=== PATIENT | male | born 1990 | race Caucasian/White ===

== ENCOUNTER 2021-01-12 16:23 | Emergency (ER) | payer MEDICAID, OTHER ==
[~2021-01-12] VITALS: Ht 187.9 cm; Wt 102.1 kg
--- NOTE | 2021-01-12 16:27 | ED Upper Extremity ---
General Chief Complaint: Laceration Stated Complaint: LACERATION Source: patient, EMS Exam Limitations: no limitations History of Present Illness Date Seen by Provider: Jan 12, 2021 Time Seen by Provider: 16:15 Initial Comments 30-year-old male with no significant past medical history coming in after he was preventing a glass door from shutting on his daughter when it shattered and lacerated his left forearm. He then called EMS and was brought here. Police ar rived on scene first and briefly placed a tourniquet that was not tightened to effectiveness. EMS removed it and just applied pressure. He is having constant severe sharp pain in the area of his left forearm where it was cut. Tetanus last receives greater than 10 years ago but he did get the full series going up. Does not take any medications including any blood thinners. Is right-handed at baseline. Is having some difficulty closing his hand he states with some mild tingling. Allergies and Home Medications Allergies Coded Allergies: No Known Drug Allergies (Unverified , 01/12/21) Patient Home Medication List Home Medication List Reviewed: Yes Review of Systems Constitutional: No chills EENTM: No blurred vision Respiratory: No cough Cardiovascular: No chest pain Gastrointestinal: No abdominal pain Musculoskeletal: No joint pain Skin: No rash Psychiatric/Neurological: No Symptoms Reported All Other Systems Reviewed Negative Unless Noted: Yes Past Yzhxzqo-Bkqadd-Muhfoc Hx Patient Social History Tobacco Use?: No Physical Exam Vital Signs Vital Signs - First Documented 01/12/21 16:27 Temp 36.7 Pulse 86 Resp 18 B/P (MAP) 135/93 (107) Pulse Ox 98 O2 Delivery Room Air Capillary Refill : Height, Weight, BMI Height: '" Weight: lbs. oz. kg; BMI Method: General Appearance: WD/WN, no apparent distress HEENT: PERRL/EOMI, normal ENT inspection, pharynx normal Neck: non-tender, full range of motion, supple, normal inspection Cardiovascular: regular rate, rhythm, no edema, no murmur Respiratory: chest non-tender, lungs clear, normal breath sounds, no respiratory distress, no accessory muscle use Gastrointestinal: normal bowel sounds, non tender, soft; No guarding Shoulder: normal inspection Elbow/Forearm: Left (Left forearm with a 5 cm laceration to the dorsal aspect along the radial side and another 5 cm laceration to the volar aspect ulnar side with adipose tissue and muscle exposed, no fascia seen, no bone seen, full visualization of the wound without any foreign bodies specifically no glass) Neurologic/Psychiatric: no motor/sensory deficits, alert, normal mood/affect, other (Patient able to make okay sign, spread fingers, cross fingers, and has normal motor exam/sensation in the ulnar, median, radial distribution, 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 Afterwards for simple interrupted sutures were added for increased wound integrity. The volar ulnar sided wound needed 9 simple interrupted sutures. Afterwards there was some continued venous bleeding with hematoma formation. One of the sutures was removed and the hematoma was evacuated. He was monitored for another 30 minutes with no continued bleeding at that time. The wound was then dressed with a minimal pressure dressing. Tolerated the procedure well. Does have some tingling on the ulnar side of his hand but normal sensation and motor exam otherwise. Progress/Results/Core Measures Results/Orders My Orders Orders - CHARLI PIERCE MD Forearm 2 View Left (01/12/21 16:25) Lidocaine/Epi 2% 1:100,000 (Xylocaine/Ep (01/12/21 16:30) Dipht,Pertuss(Acell),Tet Adult (Boostrix (01/12/21 16:30) Oxycodone Immediate Rel Tablet (Oxyir Ta (01/12/21 16:30) Medications Given in ED Current Medications Medications Dose Ordered Sig/Edmund Route Start Time Stop Time Status Last Admin Dose Admin Diphtheria/ Tetanus/Acell Pertussis 0.5 ml ONCE ONCE IM 01/12/21 16:30 01/12/21 16:31 DC 01/12/21 16:37 0.5 ML Lidocaine/ Epinephrine 20 ml ONCE ONCE INJ 01/12/21 16:30 01/12/21 16:31 DC 01/12/21 16:35 20 ML Oxycodone HCl 5 mg ONCE ONCE PO 01/12/21 16:30 01/12/21 16:31 DC 01/12/21 16:35 5 MG Vital Signs/I&O 01/12/21 16:27 Temp 36.7 Pulse 86 Resp 18 B/P (MAP) 135/93 (107) Pulse Ox 98 O2 Delivery Room Air Progress Progress Note : Progress Note 30-year-old male with above history coming in due to 2 lacerations to his left forearm after pushing it through a glass door on accident. ABCs were intact and vitals were stable on presentation. X-ray ordered and interpreted by me showing no fracture and no obvious foreign body including no glass seen. The ulnar- sided wound had more venous bleeding and after closure actually did require hematoma evacuation and repeat closure. He was then monitored with no repeat bleeding. Tetanus was updated. He was given oral oxycodone for pain. Given the wound depth and that it was dirty glass, he will be sent home with antibiotics. I will have him follow-up in 1 week for suture removal and wound check. I instructed him if he has any new numbness or weakness he should go to the ER as well as follow-up with a hand surgeon. I believe he is stable for discharge. He was sent home with strict return precautions. Diagnostic Imaging Diagonstic Imaging: Xray Plain Films/CT/US/NM/MRI: forearm Comments X-ray left forearm ordered and interpreted by me showing no obvious fracture and no obvious foreign body Departure Impression Primary Impression: Laceration of forearm, left Qualified Codes: S51.812A - Laceration without foreign body of left forearm, initial encounter Disposition: HOME, SELF-CARE Condition: Stable Departure-Patient Inst. Decision time for Depature: 18:00 Referrals: WOJCIECH VANEGAS DO Patient Instructions: Laceration Repair With Stitches ED Add. Discharge Instructions: You were seen in the emergency department after cutting your left forearm open. We closed this with stitches which will need to come out in the next 7 to 10 days. If you come to the emergency department, we can then do a wound check at that time and take the stitches out. If you have any spreading redness, drainage like infection, new numbness, weakness, then please come back to the emergency department. You do have some numbness and weakness which is likely related to cutting the muscle. If you have severe numbness tomorrow when you wake up I do want you to see a hand surgeon, Dr. Vanegas in [place], [place]. You could also call another if you have a preference. All discharge instructions reviewed with patient and/or family. Voiced understanding. Scripts Ibuprofen (Ibuprofen) 600 Mg Tablet 600 MG PO Q6H PRN for PAIN-MILD for 5 Days, #20 TAB Prov: CHARLI PIERCE MD 01/12/21 Cephalexin (Cephalexin) 500 Mg Tablet 500 MG PO QID for 7 Days, #28 TAB Prov: CHARLI PIERCE MD 01/12/21 CHARLI PIERCE MD Jan 12, 2021 16:26
[2021-01-12] MEDS ORDERED: TETANUS,DIPTH,PERTUSS P/F (BOOSTRIX) 0.5 ML VIAL IM ONE (16:30)
[2021-01-12] MEDS ORDERED: LIDOCAINE/EPI 2% 1:100,00 (XYLOCAINE) 20 ML VIAL INJ ONE (16:30)
[2021-01-12] MEDS ORDERED: CEPH500T PO (17:57)
[2021-01-12] MEDS ORDERED: IBUP-1773 PO (17:57)
[2021-01-12 18:20] VITALS: BP 125/71
--- NOTE | 2021-01-12 18:59 | Diagnostic Imaging Report ---
INDICATION: Laceration of left forearm. COMPARISON: None available. TECHNIQUE: 2 views of the left forearm. FINDINGS: No radiopaque foreign body or soft tissue gas. No acute fracture. Elbow and wrist are normal in alignment. IMPRESSION: 1. No radiopaque foreign body. Dictated by: Dictated on workstation # [id number]
== END 2021-01-12 18:20 | disposition home or self-care (01) ==
LOC: ER FS 16:28
DX: S51.812A Laceration without foreign body of left forearm, initial encounter (principal); Z23 Encounter for immunization; W25.XXXA Contact with sharp glass, initial encounter
CPT/HCPCS: 12002; 90715

== ENCOUNTER 2021-01-20 08:49 | Emergency (ER) | payer MEDICAID ==
[~2021-01-20] VITALS: Ht 187.9 cm; Wt 102.1 kg
[~2021-01-20 08:49] MED LIST: CEPH500T PO; IBUP-1773 PO
--- NOTE | 2021-01-20 09:07 | ED Suture Removal/Wound Check ---
Suture/Wound Re-check Suture Removal/Wound Recheck : Suture Removal/Wound Recheck: Dry/sterile dressing-appl, Sutures removed by RN Progress sutures removed from anterior and posterior aspect of forearm without difficulty. No erythema, fluctuance, drainage, increased warmth to indicate infection. Since pt reports intermittent tingling in ring and pinky finger recommend he follow up with clinic and see pcp provider or orthopedics provider for follow up and help with PT and monitoring how he is healing. General Appearance: WD/WN, no apparent distress Neuro/Tendon: normal motor functions, normal tendon functions, sensory deficit (reports intermittent tingling in pinky and ring finger) Skin Exam: warm/dry, ecchymosis (healling bruising to forearm) Physical Exam Vital Signs Capillary Refill : General Appearance: WD/WN, no apparent distress Cardiovascular: normal peripheral pulses Departure Impression Primary Impression: Encounter for removal of sutures Additional Impression: Numbness and tingling in left hand Disposition: 01 HOME, SELF-CARE Condition: Stable Departure-Patient Inst. Decision time for Depature: 09:02 Referrals: NO,LOCAL PHYSICIAN (PCP) Primary Care Physician KEKE ADAMS MD [facility] Patient Instructions: Paresthesia (DC), Stitches Removal Add. Discharge Instructions: Start to gently stretch and move your elbow and hand to increase the range of motion. Call the clinic to arrange a follow up to be seen with a primary provider by calling [facility] at [phone] or you could see Orthopedics Dr. Gricelda has a nurse practitioner, Kvng Watkins, that works in the [facility] clinic here in [place]. You may call [phone] to set up an appointment with him. See a provider for follow up so that you can have them help you with physical therapy and checking to see that your strength, movement and sensation is coming back in your arm and hand. JESUS CLARK MD Jan 20, 2021 09:07
[2021-01-20 09:11] VITALS: BP 151/101
== END 2021-01-20 09:11 | disposition home or self-care (01) ==
LOC: EDUNIT# 08:49 → ER FS 08:50
DX: Z48.02 Encounter for removal of sutures (principal)

== ENCOUNTER 2021-01-26 12:06 | Emergency (ER) | payer MEDICAID ==
[~2021-01-26] VITALS: Ht 185.4 cm; Wt 97.7 kg
[2021-01-26] MEDS ORDERED: ACHD5005 PO (12:31)
--- NOTE | 2021-01-26 12:34 | ED Upper Extremity ---
General Chief Complaint: Upper Extremity Stated Complaint: LT ARM PAIN Source: patient, old records History of Present Illness Date Seen by Provider: Jan 26, 2021 Time Seen by Provider: 12:08 Initial Comments 30-year-old male presenting with continued pain in his left forearm into his wrist and hand. He had a complex laceration on January 12 that was closed in the ED. He had stitches removed on the and did not have any occasions of infection at that time. He was having still pain as well as intermittent numbness and tingling in his hands and fingers. He had increased pain with movement of the wrist and fingers. Advised to see the clinic and primary care or orthopedics for repeat evaluation as he may need further care for the laceration of his forearm or at least physical therapy and conditioning of the arm. He states that when he followed up he was prescribed diclofenac which was helping with pain inflammation as well as swelling. However he continues to have significant amount of pain at times. He did get referred to Dr. Madison and nurse practitioner Kvng Watkins with orthopedics and they reviewed x-rays and referred the patient onto orthopedics at . However, the patient does not have an appointment until January 31. When he went to the clinic today to try to be seen and get a note for work he was advised his primary provider was out of the office. Since he was still having significant pain he came to the ED. He denies any new injury. He has had no fever or chills. There is no redness or streaking up the forearm. He has no purulent drainage from the wounds. His pain is worse on the flexor surface of his forearm around the laceration and when he tries to move his wrist. Allergies and Home Medications Allergies Coded Allergies: No Known Drug Allergies (Unverified , 01/12/21) Patient Home Medication List Home Medication List Reviewed: Yes Hydrocodone/Acetaminophen (Hydrocodone-Acetamin 5-325 mg) 1 Each Tablet, 1 TAB PO Q6H PRN for PAIN-SEVERE (8-10) Prescribed by: JESUS CLARK on 01/26/21 1232 Discontinued Medications Cephalexin (Cephalexin) 500 Mg Tablet, 500 MG PO QID Prescribed by: CHARLI PIERCE on 01/12/21 1117 Ibuprofen (Ibuprofen) 600 Mg Tablet, 600 MG PO Q6H PRN for PAIN-MILD Prescribed by: CHARLI PIERCE on 01/12/21 175 Review of Systems Constitutional: No chills, No fever EENTM: no symptoms reported Respiratory: no symptoms reported Cardiovascular: no symptoms reported Gastrointestinal: no symptoms reported Genitourinary: no symptoms reported Musculoskeletal: see HPI Skin: see HPI Psychiatric/Neurological: See HPI Past Hvrvhjx-Bqgwqs-Icvpwb Hx Past Medical History Surgery/Hospitalization HX: Left forearm laceration Physical Exam Vital Signs Vital Signs - First Documented 01/26/21 12:09 Temp 36.7 Pulse 88 Resp 16 B/P (MAP) 139/78 (98) Pulse Ox 98 O2 Delivery Room Air Capillary Refill : Height, Weight, BMI Height: '" Weight: lbs. oz. kg; 28.00 BMI Method:Actual General Appearance: WD/WN, mild distress HEENT: PERRL/EOMI Cardiovascular: normal peripheral pulses, regular rate, rhythm Shoulder: normal inspection, non-tender, no evidence of injury Elbow/Forearm: Left, limited ROM (due to pain and sensation that his forearm will tear open) Wrist: Yes limited ROM (decreased ROM with pain when he tries to move Left wrist) Hand: Left, limited ROM (due to pain decreased ROM of fingers of left hand, especially pinky and ring fingers), stiffness, swelling (mild) Neurologic/Psychiatric: alert, oriented x 3 Skin: normal color, warm/dry; No ecchymosis Procedures/Interventions Suture Size: 4-0 Progress/Results/Core Measures Results/Orders Vital Signs/I&O 01/26/21 01/26/21 12:09 13:00 Temp 36.7 36.7 Pulse 88 88 Resp 16 16 B/P (MAP) 139/78 (98) 139/78 Pulse Ox 98 98 O2 Delivery Room Air Room Air Progress Progress Note : Progress Note No sign of infection on exam of his wounds as he had no erythema, fluctuance, purulent drainage, increased warmth. Add on a few Hydrocodone for severe pain in addition to diclofenac and keep appt with [facility] on Jan 31. Departure Impression Primary Impression: Left forearm pain Additional Impressions: Decreased ROM of wrist Qualified Codes: M25.632 - Stiffness of left wrist, not elsewhere classified Numbness and tingling in left hand Disposition: 01 HOME, SELF-CARE Condition: Stable Departure-Patient Inst. Decision time for Depature: 12:30 Referrals: SEKOU ORDONEZ MD (PCP) Primary Care Physician [facility] (Family) Primary Care Physician Patient Instructions: Opioids for Short-Term Treatment of Pain ED, Paresthesia (DC), Muscle and Bone Pain (DC) Add. Discharge Instructions: Continue the diclofenac for pain and inflammation. You may take this up to 3 times a day. Use the hydrocodone up to 4 times a day as needed for severe pain. Follow-up with [facility] on the as scheduled. Continue to elevate your arm and alternate ice and heat to your arm to help with pain and inflammation. All discharge instructions reviewed with patient and/or family. Voiced understanding. Scripts Hydrocodone/Acetaminophen (Hydrocodone-Acetamin 5-325 mg) 1 Each Tablet 1 TAB PO Q6H PRN for PAIN-SEVERE (8-10) for 6 Days, #24 TAB 0 Refills Prov: JESUS CLARK MD 01/26/21 Work/School Note: Work Release Form Date Seen in the Emergency Department: Jan 26, 2021 Return to Work: Feb 02, 2021 Restrictions: Need Release from Doctor Other Restrictions Listed Below: Off work until released by Orthopedics from injury Left forearm/hand JESUS CLARK MD Jan 26, 2021 12:34
[2021-01-26 13:00] VITALS: BP 139/78
== END 2021-01-26 12:38 | disposition home or self-care (01) ==
LOC: EDUNIT# 12:06 → ER FS 12:07
DX: M79.632 Pain in left forearm (principal); M25.632 Stiffness of left wrist, not elsewhere classified; R20.0 Anesthesia of skin; R20.2 Paresthesia of skin; Z88.6 Allergy status to analgesic agent

== ENCOUNTER 2021-02-20 13:26 | Emergency (ER) | payer MEDICAID ==
[~2021-02-20] VITALS: Ht 185.5 cm; Wt 90.7 kg
[~2021-02-20 13:26] MED LIST changes: +ACHD5005 PO
--- OUTSIDE RECORDS SUMMARY | 2021-02-20 13:32 | XMS REPORT | Encounter Summary ---
Author Author [facility] Organization [facility] Address Unknown Phone Unavailable Care Team Providers Care [place] Name Role Phone Pricilla Mcdaniel MD PCP Encounter Details Care Team Description Date Type Department 02/01/2021 Travel Social History Date Tobacco Use Types Packs/Day Years Used Quit: 2007 Former Smoker Cigarettes 2 8 Smokeless Tobacco: Never Used Sex Assigned at Date Recorded Not on file Date Recorded COVID-19 Exposure Response 02/01/2021 2:19 PM CDT In the last month, have you been in contact with No / Unsure someone who was confirmed or suspected to have Coronavirus / COVID-19? documented as of this encounter Functional Status Date of Assessment Functional Status Response 01/31/2021 Does the patient have a hearing impairment: No 01/31/2021 Does the patient have a visual impairment: No 01/31/2021 Does the patient have impaired ambulation: No - Righ t handed 01/31/2021 Does the patient have an activity of daily living No (ADL) impairment: 01/31/2021 Does the patient have an instrumental activity of No daily living (IADL) impairment: Date of Assessment Cognitive Status Response 01/31/2021 Does the patient have a cognitive impairment: No documented as of this encounter Plan of Treatment Not on filedocumented as of this encounter Visit Diagnoses Not on filedocumented in this encounter Additional Health Concerns Assessment Noted Time A fall risk assessment has been completed for the pat ient 02/01/2021 7:45 PM CDT PHQ-2 Depression Total Score: 0 01/31/2021 2:28 PM CDT documented as of this encounter
--- OUTSIDE RECORDS SUMMARY | 2021-02-20 13:32 | XMS REPORT | Encounter Summary ---
Author Author [facility] Organization [facility] Address Unknown Phone Unavailable Care Team Providers Care Litigation Manager Name Role Phone Priclila Mcdaniel MD PCP Reason for Visit * Auth/Cert Referred By Contact Referred To Contact Status Reason Specialty Diagnoses / Procedures Diagnoses Laceration of left forearm, initial encounter Laceration of left forearm, initial encounter [U99.899P] P rocedures [place] SUTR PRPH NRV ARM/LEG XCP SCIATIC W/O TRPOS LEFT FOREARM WOUND EXPLORATION WITH REPAIR OF STRUCTURES INDICATED Encounter Details Care Team Description Date Type Department Tereza Knight MD [address] [place], [place] [id number] Jerry Soto MD [address] [place], [place] [id number] 02/01/2021 Anesthesia Operating Room: [facility] [address] [facility] [address] [place] [phone] Anesthesia Record Responsible Anesthesiologist Anesthesia Start Time Anesthesi a Stop Time Procedure Name Tereza Knight MD 02/01/21 18402/01/21 194 LEFT FOREARM WOUND EXPLORATION, ulnar neurolysis (Left Lower Arm) Date Time Event Comment 1519 183 AN Equip Check 1839 In Room 1840 Out of Pre Procedure 1840 Anes Start 184 An Start Data 184 An Induction The patient was ree valuated immediately before moderate or deep sedation use and before anesthesia induction. 184 An Intubation 184 Anesthesia Ready 1853 Antibiotic Given 1899 Proc Start 1899 An Tourn Inflated 1915 An Tourn Deflated 1936 An Extubation 1938 an stop data 1940 Handoff to RN I completed my SBAR handoff to the receiving nurse. 1940 An Stop Meds Name Total midazolam (VERSED) 1 mg/mL injection 2 mg fentaNYL PF (SUBLIMAZE) injection 100 mcg lidocaine (2%) 200 mg/10mL Injection 100 mg syringe propofol (DIPRIVAN) 200 mg/ 20 mL 250 mg injection (VIAL) ondansetron (ZOFRAN) injection 4 mg dexamethasone (DECADRON) 4 mg/mL 4 mg injection artificial tears (dextran 1 drop 70/hypromellose) ophthalmic drops HYDROmorphone (DILUADID) 2 mg dexmedeTOMIDine (PRECEDEX) 20mcg/5mL inj 8 mcg acetaminophen (OFIRMEV) 1000mg injection 1,000 mg lactated ringers infusion 0 mL * Name O2 N2O Inspired N2O Sevoflurane Inspired Sevoflurane * No blood administrations on file. Removal Type Details Placement 02/01/21 2100 by Fara Jones BSN Peripheral 02/01/21; 1500; RN; R; Hand; 20 G; No; 02/01/21 1500 by MARIA ELENA Hayes 1; 02/01/21; 2099 GARY Dean 02/01/212135 by Rafal, Ap Processor Wounds 02/01/21; 1943; Surgical incision; 1943 by Thomas, 02/01/21; 2135 GARY Chaudhry documented in this encounter Social History Date Tobacco Use Types Packs/Day [...] the patient have impaired ambulation: No - Catherineh t handed 01/31/2021 Does the patient have an activity of daily living No (ADL) impairment: 01/31/2021 Does the patient have an instrumental activity of No daily living (IADL) impairment: Date of Assessment Cognitive Status Response 01/31/2021 Does the patient have a cognitive impairment: No documented as of this encounter OR Notes * Anesthesia Postprocedure Evaluation - Leonard Jean-Baptiste DO - 02/01/2021 9:12 PM CDT Post-Anesthesia Evaluation Name: Jarrett Ledezma : 1990 Age: 30 y.o. Sex: male Procedure Information Anesthesia Start Date/Time: 02/01/211840 Procedure: LEFT FOREARM WOUND EXPLORATION, ulnar neurolysis (Left Lower Arm) - PREOP BLOCK Location: MAIN OR 37 / Main OR/Periop Surgeons: Srikanth Holm MD Post-Anesthesia Vitals BP: 128/97 (02/01 2100) Pulse: 77 (02/01 2100) Respirations: 19 PER MINUTE (02/01 2100) SpO2: 99 % (02/01 2100) SpO2 Pulse: 75 (02/01 2100) Vitals Value Taken Time BP 128/97 02/01/212099 Temp 36.5 C (97.7 F) 02/01/21 194 Pulse 77 02/01/212099 Respirations 19 PER MINUTE 02/01/212099 SpO2 99 % 02/01/212099 Post Anesthesia Evaluation Note Evaluation location: Pre/Post Patient participation: recovered; patient participated in evaluation Level of consciousness: alert Pain score: 6 (Tolerable) Pain management: adequate Hydration: normovolemia Temperature: 36.0C - 38.4C Airway patency: adequate Perioperative Events Post-op nausea and vomiting: nausea; vomiting; resolved Postoperative Status Cardiovascular status: hemodynamically stable Respiratory status: spontaneous ventilation Follow-up needed: none Additional comments: The patient was evaluated at the bedside and meets criteria for discharge from PACU at this time. The patient is agreeable to discharge and agrees to be under the care of a responsible adult for 24 hours following admin istration of anesthesia. Strict return precautions were discussed with the patie nt. A physical copy of discharge paperwork was provided, including pertinent con tact information for the patient's surgical provider and the [facility]. Leonard Jean-Baptiste DO Anesthesiology PGY-3 Perioperative Events Perioperative Event: No Emergency Case Activation: No Associated attestation - Tereza Knight MD - 02/01/2021 11:05 PM CDT ATTESTATION Post-Anesthesia Evaluation Attestation: I reviewed and agree the indicated post- anethesia care was provided. Staff name: Tereza Knight MD Date: 02/01/2021 * Anesthesia Preprocedure Evaluation - Surjit Hall MD - 02/01/2021 2:57 PM CDT Anesthesia Pre-Procedure Evaluation Name: Jarrett Ledezma : 1990 Age: 30 y.o. Sex: male Procedure Info: Procedure Information Date/Time: 02/01/21 130 Procedure: LEFT FOREARM WOUND EXPLORATION WITH REPAIR OF STRUCTURES INDICATE D (Left ) - PREOP BLOCK Location: MAIN OR 37 / Main OR/Periop Surgeons: Srikanth Holm MD Physical Assessment Vital Signs (last filed in past 24 hours): BP: 141/94 (02/02 1452) Temp: 36.6 C (97.8 F) (02/01 1442) Pulse: 80 (02/02 1452) Respirations: 8 PER MINUTE (02/02 1452) SpO2: 99 % (02/02 1452) Height: 185.4 cm (73") (02/01 1442) Weight: 98 kg (216 lb 0.8 oz) (02/01 1442) Patient History Allergies Allergen Reactions Aspirin UNKNOWN Current Medications Medication Directions DICLOFENAC SODIUM PO Take 75 mg by mouth three times daily. HYDROcodone/acetaminophen (NORCO) 5/325 mg tablet Take 1 tablet by mouth every 6 hours as needed for Pain Review of Systems/Medical History Patient summary reviewed Pertinent labs reviewed PONV Screening: Non-smoker No history of anesthetic complications No family history of anesthetic complications Pulmonary Current smoker marijuana No indications/hx of asthma no COPD Cardiovascular Exercise tolerance: >4 METS No hypertension, No palpitations No angina No dyspnea on exertion GI/Hepatic/Renal No GERD, No hx of liver disease No renal disease Neuro/Psych No seizures No CVA Substance use (occasional medical THC use) and marijuana 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 Arm went through glass door. ) Endocrine/Other No diabetes No hypothyroidism Physical Exam Airway Findings Mallampati: I TM distance: >3 FB Neck ROM: full Mouth opening: good Airway patency: adequate Cardiovascular Findings: Rhythm: regular Rate: normal Pulmonary Findings: Breath sounds clear to auscultation. Neurological Findings: Alert and oriented x 3 Constitutional findings: No acute distress Well-developed Well-nourished Diagnostic Tests Hematology: No results found for: HGB, HCT, PLTCT, WBC, NEUT, ANC, LYMPH, ALC, A BSLYMPHCT, ANNA, AMC, EOSA, ABC, BASOPHILS, MCV, MCH, MCHC, MPV, RDW General Chemistry: No results found for: NA, K, CL, CO2, GAP, BUN, CR, GLU, CA, KETONES, ALBUMIN, LACTIC, OBSCA, MG, TOTBILI, TOTBILCB, PO4 Coagulation: No results found for: PT, PTT, INR Anesthesia Plan ASA score: 1 Plan: regional Induction method: intravenous NPO status: acceptable Informed Consent Anesthetic plan and risks discussed with patient. Use of blood products discussed with patient Blood Consent: consented Plan discussed with: anesthesiologist, resident and HEDDLE MACHINE OPERATOR. documented in this encounter Plan of Treatment Not on filedocumented as of this encounter Visit Diagnoses Not on filedocumented in this encounter Administered Medications Action Date Dose Rate Site Medication Order MAR Action 02/01/2021 7:32 PM CDT 1,000 mg acetaminophen (OFIRMEV) injection Given Intravenous, Administer over 15 Minutes , INTRA-PROCEDURE MED, Starting on Kinjal 02/01/21 at 1932, Until Kinjal 02/01/21 at 1952, Anesthesia Intra-op 02/01/2021 6:44 PM CDT 1 drop artificial tears single dose ophthalmic Given solution Both Eyes, INTRA-PROCEDURE MED, Startin g on Kinjal 02/01/21 at 1844, Until Kinjal 02/01/21 at 1950, Anesthesia Intra-op 02/01/2021 7:10 PM CDT 4 mg dexamethasone (DECADRON) injection Given Intravenous, INTRA-PROCEDURE MED, Starting on Kinjal 02/01/21 at 1910, Until Kinjal 02/01/21 at 1951, Anesthesia Intra-o p 02/01/2021 7:27 PM CDT 8 mcg dexmedeTOMIDine (PRECEDEX) 20 mcg/5 mL Given (4 mcg/mL) injection Intravenous, INTRA-PROCEDURE MED, Starting on Kinjal 02/01/21 at 1927, Until Kinjal 02/01/21 at 1950, Anesthesia Intra-o p 02/01/2021 6:43 PM CDT 100 mcg fentaNYL citrate PF (SUBLIMAZE) Given injection Intravenous, INTRA-PROCEDURE MED, Starting on Kinjal 02/01/21 at 1843, Until Kinjal 02/01/21 at 1950, Anesthesia Intra-o p 02/01/2021 7:32 PM CDT 1 mg HYDROmorphone injection (DILAUDID) Given Intravenous, INTRA-PROCEDURE MED, Starting on Kinjal 02/01/21 at 1901, Until Kinjal 02/01/21 at 1950, Anesthesia Intra-o p 1 mg Given 02/01/2021 7:01 PM CDT 02/01/2021 6:43 PM CDT 100 mg lidocaine (PF) injection Given Intravenous, INTRA-PROCEDURE MED, Starting on Kinjal 02/01/21 at 1843, Until Kinjal 02/01/21 at 1950, Anesthesia Intra-o p 02/01/2021 6:41 PM CDT 2 mg midazolam (VERSED) injection Given Intravenous, INTRA-PROCEDURE MED, Starting on Kinjal 02/01/21 at 1841, Until Kinjal 02/01/21 at 1950, Anesthesia Intra-o p 02/01/2021 7:34 PM CDT 4 mg ondansetron (ZOFRAN) injection Given Intravenous, INTRA-PROCEDURE MED, Starting on Kinjal 02/01/21 at 1934, Until [facility] 02/01/21 at 1951, Anesthesia Intra-o p 02/01/2021 6:43 PM CDT 250 mg propofol (DIPRIVAN) injection Given Intravenous, INTRA-PROCEDURE MED, Starting on Kinjal 02/01/21 at 1843, Until Kinjal 02/01/21 at 1951, Anesthesia Intra-o p documented in this encounter Additional Health Concerns Assessment Noted Time A fall risk assessment has been completed for the pat ient 02/01/2021 7:45 PM CDT PHQ-2 Depression Total Score: 0 01/31/2021 2:28 PM CDT documented as of this encounter
--- OUTSIDE RECORDS SUMMARY | 2021-02-20 13:32 | XMS REPORT | Encounter Summary ---
Author Author [facility] Organization [facility] Address Unknown Phone Unavailable Care Team Providers Care Cheese Processor Name Role Phone Pricilla Mcdaniel MD PCP Encounter Details Care Team Description Date Type Department Srikanth Holm MD [address] [facility] [address] [place] [address] 02/13/2021 Orders Only Orthopedics and Spo rts Medicine: [facility] [place] [place] [address] [place] [address] Social History Date Tobacco Use Types Packs/Day [...] impairment: No documented as of this encounter Ordered Prescriptions Start Date End Date Prescription Sig Dispensed Refills 02/13/2021 HYDROcodone/acetaminophen Take one 10 tablet 0 (NORCO) 5/325 mg tablet tablet to two tablets by mouth every 4 hours as needed for Pain documented in this encounter Plan of Treatment Not on filedocumented as of this encounter Visit Diagnoses Not on filedocumented in this encounter Discontinued Medications Start Date End Date Medication Sig Discontinue Reason 02/01/2021 02/13/2021 HYDROcodone/acetaminophen Take one Reorder (NORCO) 5/325 mg tablet tablet to two tablets by mouth every 4 hours as needed for Pain documented as of this encounter Additional Health Concerns Assessment Noted Time A fall risk assessment has been completed for the pat ient 02/01/2021 7:45 PM CDT PHQ-2 Depression Total Score: 0 01/31/2021 2:28 PM CDT documented as of this encounter
--- OUTSIDE RECORDS SUMMARY | 2021-02-20 13:32 | XMS REPORT | Clinical Summary ---
Author Author [facility] Organization [facility] Address Unknown Phone Unavailable Care Team Providers Care Surface Miner Name Role Phone Pricilla Mcdaniel MD PCP Source Comments Some departments are not documenting in the electronic medical record. If you d o not see the information that you expected, contact Release of Information in [facility] [employer] Information Management department at [phone] for further assistan ce in locating additional records.[facility] Allergies Comments Active Allergy Reactions Severity Noted Date Aspirin UNKNOWN Low 01/31/2021 Medications End Date Status Medication Sig Dispensed Refills Start Date Active DICLOFENAC SODIUM PO Take 75 mg by 0 mouth three times daily. Active HYDROcodone/acetaminophen Take 1 tablet 0 (NORCO) 5/325 mg tablet by mouth every 6 hours as needed for Pain Active HYDROcodone/acetaminophen Take one 10 tablet 0 (NORCO) 5/325 mg tablet tablet by 1 mouth every 6 hours as needed for Pain Active HYDROcodone/acetaminophen Take one 10 tablet 0 (NORCO) 5/325 mg tablet tablet to two 1 tablets by mouth every 4 hours as needed for Pain 02/13/2021 Discontinued (Reorder) HYDROcodone/acetaminophen Take one 10 tablet 0 (NORCO) 5/325 mg tablet tablet to two 1 tablets by mouth every 4 hours as needed for Pain Active Problems Problem Noted Date Forearm laceration 02/08/2021 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 Encounters Care Team Description Date Type Specialty Srikanth Holm MD 02/13/2021 Orders Only Orthopedic Surgery Tereza Knight MD Bachamp, Kyle, MD 02/01/2021 Anesthesia Event Chacha Lyn MD 02/01/2021 Hospital Radiology Encounter Srikanth Holm MD Laceration of left forearm, initial enco unter 02/01/2021 Hospital Encounter Srikanth Holm MD LEFT FOREARM WOUND EXPLORATION, ulnar ne urolysis 02/01/2021 Surgery 02/01/2021 Travel Gio Jean-Baptiste MD Fox, Tyler J, MD Laceration of left forearm, initial enco unter; 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, initial encounter 01/31/2021 Office Visit Sports Medicine Trever Smith PA-C Laceration of left forearm, initial enco unter (Primary Dx) 01/31/2021 Prep for Case Sports Medicine 01/31/2021 Travel Gio Jean-Baptiste MD Appointment 01/26/2021 Telephone Orthopedic Surgery from Last 3 Months Social History Date Tobacco Use Types Packs/Day Years Used Quit: 2007 Former Smoker Cigarettes 2 8 Smokeless Tobacco: Never Used Sex Assigned at Date Recorded Not on file Date Recorded COVID-19 Exposure Response 02/01/2021 2:19 PM CDT In the last month, have you been in contact with No / Unsure someone who was confirmed or suspected to have Coronavirus / COVID-19? Last Filed Vital Signs Reading Time Taken Comments Vital Sign 128/97 02/01/2021 9:00 PM CDT Blood Pressure 65 02/01/2021 9:01 PM CDT Pulse 36.7 C (98.1 F) 02/01/2021 9:00 PM CDT Temperature - - Respiratory Rate 97% 02/01/2021 9:01 PM CDT Oxygen Saturation - - Inhaled Oxygen Concentration 98 kg (216 lb 0.8 oz) 02/01/2021 2:42 PM CDT Weight 185.4 cm (6' 1") 02/01/2021 2:42 PM CDT Height 28.5 02/01/2021 2:42 PM CDT Body Mass Index Plan of Treatment Health Maintenance Due Date Last Done Comments HIV SCREENING 2004 DTAP/TDAP VACCINES (1 - 2007 Tdap) HEPATITIS C SCREENING 2007 PHYSICAL (COMPREHENSIVE) 2007 EXAM INFLUENZA VACCINE 12/10/2020 Procedures Comments Procedure Name Priority Date/Time Associated Diag nosis SUTURE MAJOR PERIPHERAL 02/01/2021 Laceration of left NERVE WITHOUT 6:40 PM CDT forearm, initial TRANSPOSITION - UPPER encounter EXTREMITY TELEMETRY STRIPS-SCAN 02/01/2021 12:00 AM CDT TELEMETRY STRIPS-SCAN 02/01/2021 12:00 AM CDT from Last 3 Months Results * TELEMETRY STRIPS-SCAN (02/01/2021 12:00 AM CDT) Narrative Performed At This result has an attachment that is n ot available. Ordered by an unspecified provider. * TELEMETRY STRIPS-SCAN (02/01/2021 12:00 AM CDT) Narrative Performed At This result has an attachment that is n ot available. Ordered by an unspecified provider. from Last 3 Months Insurance Type Payer Benefit Subscriber ID Effective Phone Address Plan / Dates Group Medicaid UHC MEDICAID [place] UHC [id number] 2020-P [facility] [place] [phone] Advance Directives Patient Wheel Cleaner Explanation Type Date Recorded Advance Directive/DPOA
--- OUTSIDE RECORDS SUMMARY | 2021-02-20 13:32 | XMS REPORT | Encounter Summary ---
Author Author [facility] Organization [facility] Address Unknown Phone Unavailable Care Team Providers Care Aviation Mechanic Name Role Phone Pricilla Mcdaniel MD PCP Reason for Visit * Auth/Cert Referred By Contact Referred To Contact Status Reason Specialty Diagnoses / Procedures Diagnoses Laceration of left forearm, initial encounter Laceration of left forearm, initial encounter [C31.542L] P rocedures [place] SUTR PRPH NRV ARM/LEG XCP SCIATIC W/O TRPOS LEFT FOREARM WOUND EXPLORATION WITH REPAIR OF STRUCTURES INDICATED Encounter Details Care Team Description Date Type Department Srikanth Holm MD [address] [facility] [address] [place] [address] LEFT FOREARM WOUND EXPLORATION, ulnar ne urolysis 02/01/2021 Surgery Operating Room: [address] [place] [address] Surgery Details Trauma Case? Date/Time Status Location OR Service Patient Class Case Class Case Type 02/01/21 Posted [facility] OR OR [facility] Elect daniele - 1:02 PM s Surgery Treating conditions that are not life or limb threatenin g Panel 1 Procedure LRB Anes Op Region Wound Class Com ments LEFT FOREARM WOUND Left Monitored Lower Arm Clean PREO P BLOCK EXPLORATION, ulnar Anesthesia neurolysis Care (MAC) Panel Surgeon Surgeon Role Service 1 Srikanth Holm MD Primary Orthopedics Social History Date Tobacco Use Types Packs/Day [...] impairment: No documented as of this encounter Medications at Time of Discharge Start Date End Date Medication Sig Dispensed Refills DICLOFENAC SODIUM PO Take 75 mg by 0 mouth three times daily. 02/01/2021 HYDROcodone/acetaminophen Take one 10 tablet 0 (NORCO) 5/325 mg tablet tablet by mouth every 6 hours as needed for Pain HYDROcodone/acetaminophen Take 1 tablet 0 (NORCO) 5/325 mg tablet by mouth every 6 hours as needed for Pain 02/01/2021 02/13/2021 HYDROcodone/acetaminophen Take one 10 tablet 0 (NORCO) 5/325 mg tablet tablet to two tablets by mouth every 4 hours as needed for Pain documented as of this encounter Ordered Prescriptions Start Date End Date Prescription Sig Dispensed Refills 02/01/2021 HYDROcodone/acetaminophen Take one 10 tablet 0 (NORCO) 5/325 mg tablet tablet by mouth every 6 hours as needed for Pain 02/01/2021 02/13/2021 HYDROcodone/acetaminophen Take one 10 tablet 0 (NORCO) 5/325 mg tablet tablet to two tablets by mouth every 4 hours as needed for Pain documented in this encounter Discharge Disposition Code Departure Means Destination Disposition Wheelchair Home or Self Care documented in this encounter Progress Notes * Isatu Mckinney RN - 02/01/2021 5:49 PM CDT Annie is on the Mezzanine with baby. documented in this encounter H&P Notes * Trever Smith PA-C - 02/01/2021 6:30 PM CDT [facility] History & Physical Note Admission Date: 02/01/2021 Chief Complaint: Left forearm laceration Assessment/Plan Plan to proceed to OR today for left forearm wound exploration and repair of st ructures as indicated History of Present Illness: Jarrett Arnett is a 30 y.o. male, who presents fo r operative management of his left forearm wound. No past medical history on file. No past surgical history on file. Social History Socioeconomic History Marital status: Single Spouse name: Not on file Number of children: Not on file Years of education: Not on file Highest education level: Not on file Occupational History Not on file Tobacco Use Smoking status: Former Smoker Packs/day: 2.00 Years: 8.00 Pack years: 16.00 Types: Cigarettes Quit date: 2007 Years since quittin.7 Smokeless tobacco: Never Used Vaping Use Vaping Use: Never used Substance and Sexual Activity Alcohol use: Not on file Drug use: Not on file Sexual activity: Not on file Other Topics Concern Not on file Social History Narrative Not on file No family history on file. Allergies: Allergies Allergen Reactions Aspirin UNKNOWN No current outpatient medications on file as of 02/01/2021. Review of Systems: Musculoskeletal:positive for hand pain Cardio: denies chest pain Respiratory: denies shortness of breath Blood pressure (!) 141/94, pulse 80, temperature 36.6 C (97.8 F), height 185 .4 cm (73"), weight 98 kg (216 lb 0.8 oz), SpO2 99 %. Physical Exam: General: AAOx3, NAD Skin: laceration at ulnar aspect of forearm with sutures in place. No signs of i nfection Musculoskeletal: holding wrist and fingers in flexed position Neurologic: decreased sensation to small and ring fingers Lab/Radiology/Other Diagnostic Tests: Radiographs: CBC w/Diff No results found for: WBC, HGB, HCT, PLTCT Basic Metabolic Profile No results found for: NA, K, CL, CO2, GAP, BUN, CR, GLU Coagulation Studies No results found for: PT, PTT, INR Trever Smith PA-C documented in this encounter Miscellaneous Notes * Operative Report (DICTATED ONLY) - Srikanth Holm MD - 02/01/2021 9:25 PM CDT THE [address] [address] PATIENT NAME: JARRETT ARNETT MR#/PT#: [id number] Page 2 OPERATIVE REPORT DATE OF OPERATION: 02/01/2021 SURGEON: Srikanth Holm MD DOUBLE END PRODUCTION GRINDER(S): Trever Smith PA-C. PREOPERATIVE DIAGNOSIS: Left forearm laceration with likely ulnar nerve injury. POSTOPERATIVE DIAGNOSIS: Left forearm laceration with likely ulnar nerve injury. OPERATIVE PROCEDURE: Left forearm penetrating wound exploration with ulnar nerve exploration. ANESTHESIA: General. DESCRIPTION AND FINDINGS OF OPERATIVE PROCEDURE: After informed consent had been obtained, the patient was transported to the OR. He was transferred supine on operating table. The left arm was positioned on the hand table, sterilely prepped and draped in a standard fashion. An operativ e pause was conducted to confirm correct patient, side, site, and procedure. Th e patient received IV antibiotics for antimicrobial prophylaxis. I confirmed my initials were present on the operative extremity. There was a transverse lacer ation at the mid point of the ulnar volar forearm. A V-shaped extension proxima lly and distally was marked. The arm was exsanguinated with an Esmarch bandage and the tourniquet inflated to 250 mmHg. We opened the skin and dissected caref ully through the subcutaneous tissue under 4.0 loupe magnification. Significant scarring was present. The antebrachial fascia was incised. We identified the ulnar neurovascular bundle, both proximally and distally. We dissected into the zone of injury. Again, significant scarring present. The ulnar artery had bee n lacerated and was clotted both proximally and distally. The ulnar nerve was c arefully explored under magnification utilizing standard microsurgical dissectio n technique. There appeared to be a neuroma in continuity with dense scar tissu e present at the zone of injury. The central motor fascicle of the ulnar nerve appeared to be intact and relatively uninjured. The dorsal most sensory fascicl e also appeared to be normal. The most volar sensory bundle had been damaged, b ut seemed to remain in relatively anatomic position. Given the overall appearan ce of the neuroma in continuity. We felt best to leave this to allow for contin ued healing, especially given the patient's preoperative exam. The flexor carpi ulnaris muscle appeared to be in relatively good condition and the tendon was i ntact. The patient was noted intraoperatively to have significant wrist and fin mike stiffness. We gently manipulated them into full extension, which seemed to have relatively soft end point. The wound was thoroughly irrigated with normal saline. The tourniquet was released. Hemostasis was obtained with bipolar elec trocautery. The skin was reapproximated with interrupted 5-0 Prolene in a horiz ontal mattress fashion. A sterile dressing of Xeroform, 4 x 4's, Webril, and li ght Coban overwrap were applied. The patient recovered from anesthesia having t olerated the procedure well. There were no immediate complications. ESTIMATED BLOOD LOSS: Minimal. SPECIMENS REMOVED: None. ATTESTATION: I was present for the entire procedure and performed all technical aspects with the assistance of Trever Smith PA-C. The aid of a physician as sistant was required as no qualified resident was available. DEVORAH assisted with l imb positioning and soft tissue retraction to allow for the safe completion of t he procedure. Srikanth Holm MD TF / MEDQ /[id number] cc: - Srikanth Holm MD * Procedures (Immed Post or Bedside) - Trever Smith PA-C - 02/01/2021 7:35 PM CDT Brief Operative Note Name: Jarrett Arnett is a 30 y.o. male : 1990 MRN#: [id number] DATE OF OPERATION: 02/01/2021 Date: 02/01/2021 Preoperative Dx: Laceration of left forearm, initial encounter [S51.2A] Post-op Diagnosis * Laceration of left forearm, initial encounter [S51.204O] Procedure(s) (LRB): LEFT FOREARM WOUND EXPLORATION, primary laceration repair (Left) Surgeon(s) and Role: * Srikanth Holm MD - Primary Findings: Ulnar nerve contusion Estimated Blood Loss: No blood loss documented. Specimen(s) Removed/Disposition: * No specimens in log * Complications: None Implants: None Drains: None Disposition: PACU - stable Trever Smith PA-C Pager documented in this encounter Plan of Treatment Date/Time Name Type Priority Associated Diag noses 02/01/2021 2:41 PM CDT POC ANES US GUIDED NERVE Imaging Routine BLOCK documented as of this encounter Procedures Comments Procedure Name Priority Date/Time Associated Diag nosis SUTURE MAJOR PERIPHERAL 02/01/2021 Laceration of left NERVE WITHOUT 6:40 PM CDT forearm, initial TRANSPOSITION - UPPER encounter EXTREMITY TELEMETRY STRIPS-SCAN 02/01/2021 12:00 AM CDT TELEMETRY STRIPS-SCAN 02/01/2021 12:00 AM CDT documented in this encounter Results * TELEMETRY STRIPS-SCAN (02/01/2021 12:00 AM CDT) Narrative Performed At This result has an attachment that is n ot available. Ordered by an unspecified provider. * TELEMETRY STRIPS-SCAN (02/01/2021 12:00 AM CDT) Narrative Performed At This result has an attachment that is n ot available. Ordered by an unspecified provider. documented in this encounter Visit Diagnoses Diagnosis Laceration of left forearm, initial enc ounter documented in this encounter Administered Medications Action Date Dose Rate Site Medication Order MAR Action 02/01/2021 7:29 PM CDT 10 mL Arm, Lef t bupivacaine HCl (MARCAINE) 0.25 % Given injection INTRA-PROCEDURE MED, Starting on Kinjal 02/01/21 at 1929, Until Kinjal 02/01/21 at 1946, Intra-op fentaNYL citrate PF (SUBLIMAZE) injection 25 mcg 25 mcg, Intravenous, EVERY 5 MIN PRN, Starting on Kinjal 02/01/21 at 1924, Until Kinjal 02/01/21 at 2336, Pain Injectable, For Pain Score 4-6, Maximum total dose 200 mcg Hold if RR < 10, PACU (only) 02/01/2021 8:44 PM CDT 50 mcg fentaNYL citrate PF (SUBLIMAZE) Given injection 50 mcg 50 mcg, Intravenous, EVERY 5 MIN PRN, Starting on Kinjal 02/01/21 at 1924, Until Kinjal 02/01/21 at 233, Pain Injectable, For Pain Score 7-10, Maximum total dose of 200 mcg Hold for RR < 10, PACU (only ) 50 mcg Given 02/01/2021 8:26 PM CDT 02/01/2021 8:26 PM CDT 1 mg haloperidol lactate (HALDOL) injection 1 Given mg 1 mg, Intravenous, ONCE PRN, 1 dose, Starting on Kinjal 02/01/21 at 1924, Until Kinjal 02/01/21 at 2025, Other..., Nausea and Vomiting, Second line agent, give i f first line agent ineffective. DO NOT ADMINISTER if given intraoperatively., PACU (only) 02/01/2021 3:00 PM CDT 1,000 mL 20 mL/hr lactated ringers infusion Given - New 1,000 mL, 1,000 mL, Intravenous, at 20 Bag mL/hr, CONTINUOUS, Starting on Kinjal 02/01/21 at 1445, Until Kinjal 02/01/21 at 2336, Pre-Op LACTATED RINGERS IV SOLP (Cabinet Override) NOW, 1 dose, On Kinjal 02/01/21 at 1445, Created by cabinet override, Created by cabinet override lidocaine PF 1% (10 mg/mL) injection 0. 2 mL 0.2 mL, Injection, NEEDED, Starting on Kinjal 02/01/21 at 1533, Until Kinjal 02/01/21 at 2336, Other..., for IV insertion, Pre-Op ondansetron (ZOFRAN) injection 4 mg 4 mg, Intravenous, ONCE PRN, 1 dose, Starting on Kinjal 02/01/21 at 1924, Until Kinjal 02/01/21 at 2336, Other..., nausea/vomiting, First line agent., DO NOT ADMINISTER if given within the last six hours., PACU (only) 02/01/2021 8:51 PM CDT 10 mg oxyCODONE (ROXICODONE) tablet 10 mg Given 10 mg, Oral, ONCE, 1 dose, On Kinjal 02/01/21 at 2130 documented in this encounter Active and Recently Administered Medications Times are shown in CDT. 01/31/2021 02/01/2021 Medication Order 01/30/20211944 (Due) acetaminophen (OFIRMEV) 1,000 mg injection 100 mL 1,000 mg, Intravenous, 100 mL, Administer over 15 Minutes, ONCE, 1 dose, On Kinjal 02/01/21 at 1945 2050 (Given - Provider: MARTINA Matthews) oxyCODONE (ROXICODONE) tablet 10 mg (COMPLETED) 10 mg, Oral, ONCE, 1 dose, On Kinjal 02/01/21 at 2130 01/31/2021 02/01/2021 Medication Order 01/30/2021 1500 (Given - New Bag - Provider: Dianne Hayes RN)1841 (Anesthesia Continue from Pre-Post - Provider: Srikanth Holm MD) lactated ringers infusion 1,000 mL, 1,000 mL, Intravenous, at 20 mL/hr, CONTINUOUS, Starting on Kinjal 02/01/21 at 1445, Until Kinjal 02/01/21 at 2336, Pre-Op 01/31/2021 02/01/2021 Medication Order 01/30/20211928 (Given - Provider: Srikanth Holm MD) bupivacaine HCl (MARCAINE) 0.25 % injection (CANCELED) INTRA-PROCEDURE MED, Starting on Kinjal 02/01/21 at 1929, Until Kinjal 02/01/21 at 1946, Intra-op fentaNYL citrate PF (SUBLIMAZE) injection 25 mcg 25 mcg, Intravenous, EVERY 5 MIN PRN, Starting on Kinjal 02/01/21 at 1924, Until Kinjal 02/01/21 at 2336, Pain Injectable, For Pain Score 4-6, Maximum total dose 200 mcg Hold if RR < 10, PACU (only) 2025 (Given - Provider: MARTINA Matthews)2043 (Given - Provider: MARTINA Matthews) fentaNYL citrate PF (SUBLIMAZE) injection 50 mcg 50 mcg, Intravenous, EVERY 5 MIN PRN, Starting on Kinjal 02/01/21 at 1924, Until Kinjal 02/01/21 at 2336, Pain Injectable, For Pain Score 7-10, Maximum total dose of 200 mcg Hold for RR < 10, PACU (only ) 2025 (Given - Provider: MARTINA Matthews) haloperidol lactate (HALDOL) injection 1 mg (COMPLETED) 1 mg, Intravenous, ONCE PRN, 1 dose, Starting on Kinjal 02/01/21 at 1924, Until Kinjal 02/01/21 at 2359, Other..., Nausea and Vomiting, Second line agent, give i f first line agent ineffective. DO NOT ADMINISTER if given intraoperatively., PACU (only) lidocaine PF 1% (10 mg/mL) injection 0. 2 mL 0.2 mL, Injection, NEEDED, Starting on Kinjal 02/01/21 at 1533, Until Kinjal 02/01/21 at 2336, Other..., for IV insertion, Pre-Op ondansetron (ZOFRAN) injection 4 mg 4 mg, Intravenous, ONCE PRN, 1 dose, Starting on Kinjal 02/01/21 at 1924, Until Kinjal 02/01/21 at 2336, Other..., nausea/vomiting, First line agent., DO NOT ADMINISTER if given within the last six hours., PACU (only) documented in this encounter Orders First Ordered Date Medications Ordered That Might Not Have Count Last Ordered Date Been Administered acetaminophen (OFIRMEV) 1,000 mg 1 02/01 injection 100 mL fentaNYL citrate PF (SUBLIMAZE) 2020 injection 25 mcg lidocaine PF 1% (10 mg/mL) injection 0.2 02/01/2021 mL ondansetron (ZOFRAN) injection 4 mg 1 First Ordered Date Diet Count Last Ordered Date DISCHARGE DIET REGULAR 02/01/2021 First Ordered Date Nursing Count Last Ordered Date DISCHARGE ACTIVITY DRIVING 02/01/2021 DISCHARGE ACTIVITY NORMAL 02/01/2021 DISCHARGE CONTACT 1 02/01/2021 DISCHARGE SIGNS/SYMPTOMS 1 02/01/2021 DISCHARGE WOUND CARE 1 02/01/2021 First Ordered Date Discharge Count Last Ordered Date DISCHARGE PATIENT NOW 1 02/01/2021 First Ordered Date Vital Signs Count Last Ordered Date VITAL SIGNS 1 02/01/[address] & Maintain Count Last Ordered Date PLACE AND MAINTAIN SCD 1 02/01/2021 documented in this encounter Additional Health Concerns Assessment Noted Time A fall risk assessment has been completed for the pat ient 02/01/2021 7:45 PM CDT PHQ-2 Depression Total Score: 0 01/31/2021 2:28 PM CDT documented as of this encounter
--- OUTSIDE RECORDS SUMMARY | 2021-02-20 13:33 | XMS REPORT | Encounter Summary ---
Author Author [facility] Organization [facility] Address Unknown Phone Unavailable Care Team Providers Care Corner Bead Operator Name Role Phone Pricilla Mcdaniel MD PCP Reason for Visit * Auth/Cert Referred By Contact Referred To Contact Status Reason Specialty Diagnoses / Procedures Diagnoses Laceration of left forearm, initial encounter Laceration of left forearm, initial encounter [T02.427T] P rocedures [place] SUTR PRPH NRV ARM/LEG XCP SCIATIC W/O TRPOS LEFT FOREARM WOUND EXPLORATION WITH REPAIR OF STRUCTURES INDICATED Encounter Details Care Team Description Date Type Department Srikanth Holm MD [address] [facility] [address] [place] [address] Laceration of left forearm, initial enco unter 02/01/2021 Hospital Operating Room: [address] [place] [address] Social History Date Tobacco Use Types Packs/Day [...] / COVID-19? documented as of this encounter Last Filed Vital Signs Reading Time Taken [...] 02/01/2021 2:42 PM CDT Body Mass Index documented in this encounter Functional Status Date of Assessment [...] 5:49 PM CDT Annie is on the [place]zzanine with baby. documented in this encounter H&P [...] - 02/01/2021 9:25 PM CDT THE [address] [address] PATIENT NAME: JARRETT ARNETT MR#/PT#: [id number] Page 2 OPERATIVE REPORT DATE OF OPERATION: 02/01/2021 SURGEON: Srikanth Holm MD SPORTS COMPLEX ATTENDANT(S): Trever Smith PA-C. PREOPERATIVE DIAGNOSIS: Left forearm [...] procedure. Srikanth Holm MD TF / MEDQ /[id number] cc: - Srikanth Holm MD * Procedures (Immed Post or Bedside) - Trever Smith PA-C - 02/01/2021 7:35 PM CDT Brief Operative Note Name: Jarrett Arnett is a 30 y.o. male : 1990 MRN#: [id number] DATE OF OPERATION: 02/01/2021 Date: 02/01/2021 Preoperative Dx: Laceration of left forearm, initial encounter [S51.812A] Post-op Diagnosis * Laceration of left forearm, initial encounter [S51.812A] Procedure(s) (LRB): LEFT FOREARM WOUND EXPLORATION, primary [...] documented in this encounter Visit Diagnoses Diagnosis Forearm laceration involving tendon, le ft, initial encounter - Primary Forearm laceration, left, initial encou nter documented in this encounter Administered Medications Action Date Dose Rate Site Medication Order MAR Action fentaNYL citrate PF (SUBLIMAZE) injection 25 mcg [...] 1,000 mg 1 02/01 injection 100 mL bupivacaine HCl (MARCAINE) 0.25 % 1 01/11 injection fentaNYL citrate PF (SUBLIMAZE) 1 2020 injection 25 mcg lidocaine PF 1% (10 mg/mL) injection 0.2 1 02/01/2021 mL ondansetron (ZOFRAN) injection 4 mg 1 First Ordered Date Diet Count Last Ordered Date DISCHARGE DIET REGULAR 02/01/2021 First Ordered Date Nursing Count Last Ordered Date DISCHARGE ACTIVITY DRIVING 1 02/01/2021 DISCHARGE ACTIVITY NORMAL 1 02/01/2021 DISCHARGE CONTACT 1 02/01/2021 DISCHARGE SIGNS/SYMPTOMS [...]
--- OUTSIDE RECORDS SUMMARY | 2021-02-20 13:33 | XMS REPORT | Encounter Summary ---
Author Author [facility] Organization [facility] Address Unknown Phone Unavailable Care Team Providers Care Freezing Machine Operator Name Role Phone Pricilla Mcdaniel MD PCP Encounter Details Care Team Description Date Type Department 01/31/2021 Travel Social History Date Tobacco Use Types Packs/Day Years Used Quit: 2007 Former Smoker Cigarettes 2 8 Smokeless Tobacco: Never Used Sex Assigned at Date Recorded Not on file Date Recorded COVID-19 Exposure Response 01/31/2021 1:30 PM CDT In the last month, have [...] has been completed for the pat ient 01/31/2021 2:28 PM CDT PHQ-2 Depression Total Score: 0 01/31/2021 2:28 PM CDT documented as of this encounter
--- OUTSIDE RECORDS SUMMARY | 2021-02-20 13:33 | XMS REPORT | Encounter Summary ---
Author Author [facility] Organization [facility] Address Unknown Phone Unavailable Care Team Providers Care Vice Chairman Name Role Phone Pricilla Mcdaniel MD PCP Encounter Details Care Team Description Date Type Department Trever Smith PA-C [address] [facility] [address] [place] [address] [phone] Laceration of left forearm, initial enco unter (Primary Dx) 01/31/2021 Prep for Case Sports Medicine and Performance: [facility]: [id number] [place] [address] Social History Date Tobacco Use Types Packs/Day [...] filedocumented as of this encounter Visit Diagnoses Diagnosis Laceration of left forearm, initial enc ounter - Primary documented in this encounter Orders First Ordered Date Nursing Count Last Ordered Date COVID-19 TESTING NOT REQUIRED 1 02/01/20 21 First Ordered Date Case Request Count Last Ordered Date CASE REQUEST 1 01/31/2021 documented in this encounter Additional Health Concerns Assessment Noted Time A fall risk assessment has been completed for the pat ient 01/31/2021 2:28 PM CDT PHQ-2 Depression Total Score: 0 01/31/2021 2:28 PM CDT documented as of this encounter
--- OUTSIDE RECORDS SUMMARY | 2021-02-20 13:33 | XMS REPORT | Encounter Summary ---
Author Author [facility] Organization [facility] Address Unknown Phone Unavailable Care Team Providers Care Automobile Accessories Installer Name Role Phone Pricilla Mcdaniel MD PCP Reason for Visit * Reason Onset Date Comments Appointment 01/26/2021 Encounter Details Care Team Description Date Type Department Gio Jean-Baptiste MD [address] [place] [address] Appointment 01/26/2021 Telephone Orthopedics and Spo rts Medicine: [facility] [place] [address] [facility] [address] [place] [address] Social History Date Tobacco Use Types Packs/Day Years Used Never Assessed Sex Assigned at Date Recorded Not on file documented as of this encounter Miscellaneous Notes * Telephone Encounter - Gloria Christopher RN - 01/26/2021 12:18 PM CDT I have attempted to call Jarrett Ledezma regarding upcoming appt at number listed in chart and received the following messgae " your call is unable to be complet ed at this time, please call back later.". documented in this encounter Plan of Treatment Not on filedocumented as of this encounter Visit Diagnoses Not on filedocumented in this encounter
--- NOTE | 2021-02-20 13:58 | ED Suture Removal/Wound Check ---
Suture/Wound Re-check General Appearance: WD/WN, no apparent distress Skin Exam: normal color, warm/dry, other (healing lac left forearm) Physical Exam Vital Signs Capillary Refill : General Appearance: WD/WN, no apparent distress Extremities: normal range of motion, normal capillary refill Skin: normal color, warm/dry, other (healing lac w good wound margin approx, left forearm. skin growing over sutures (18 days). Removed by nurse) Departure Impression Primary Impression: Encounter for removal of sutures Disposition: HOME, SELF-CARE Condition: Stable Departure-Patient Inst. Decision time for Depature: 13:57 Referrals: SEKOU ORDONEZ MD (PCP) Primary Care Physician [facility] (Family) Primary Care Physician Patient Instructions: SUTURE REMOVAL-UNCOMPLICATED JEAN TERRELL DO Feb 20, 2021 13:58
[2021-02-20 14:01] VITALS: BP 167/80
== END 2021-02-20 14:01 | disposition home or self-care (01) ==
LOC: EDUNIT# 13:26 → ER FS 13:28
DX: Z48.02 Encounter for removal of sutures (principal)
CPT/HCPCS: 99281

== ENCOUNTER → 2021-07-02 | Outpatient (CLI) | payer MEDICAID ==
--- NOTE | 2021-07-02 10:53 | Diagnostic Imaging Report ---
INDICATION: Right-sided shoulder pain and decreased range of motion. COMPARISON: I have no priors. FINDINGS: The three-view right shoulder demonstrates well-maintained joint spaces. The articular surface is smooth. No abnormal calcifications. No loose body. No fracture, dislocation, or erosive features. The visualized right lung, ribs, and pleura are unremarkable. IMPRESSION: Normal three-view right shoulder. Dictated by: Dictated on workstation # [id number]
== END ==
LOC: RAD FS 08:37
PROVIDERS: ATTEND Nurse Practitioner Family
DX: G89.29 Other chronic pain (principal); M25.511 Pain in right shoulder; M25.611 Stiffness of right shoulder, not elsewhere classified
CPT/HCPCS: 73030

== ENCOUNTER 2021-12-13 13:59 | Emergency (ER) | payer MEDICAID ==
[2021-12-13] MEDS ORDERED: methylPREDNISolone 80 MG/ML (DEPO MEDROL) VIAL IM STA (14:25)
[2021-12-13] MEDS ORDERED: ORPHENADRINE 60 MG/2 ML (NORFLEX) AMP (ED ONLY) IM STA (14:25)
--- NOTE | 2021-12-13 14:47 | ED Back Pain ---
General Chief Complaint: Back Problems Stated Complaint: BACK PAIN Nursing Triage Note: PT REPORTS HE WOKE UP WITH LEFT LOWER BACK PAIN. THE PAIN RADIATES DOWN HIS BUTTOCKS AND INTO HIS LEFT LEG. Source of Information: Patient History of Present Illness Date Seen by Provider: Dec 13, 2021 Time Seen by Provider: 14:04 Initial Comments 31-year-old male presenting with complaints of low back pain radiating down his left leg. He denies any direct trauma to his back or fall. He does do heavy lifting at work. He had previously had similar pains 3 to 4 years ago that lasted for a few days. He states he has spasm and pain to his left lower back and it radiates down into his leg. He was concerned it might be sciatica and he had lifted up online and that it usually gets treated with steroids and anti- inflammatories. Especially if this is done usually gets better faster he said. Since last time he took a few days he came into be seen today since it just started this morning. He is supposed to work tomorrow but is off today. He denies any difficulty with urination or bowel movements. He has normal sensation in his arms and legs. He has not taken anything for his pain prior to arrival in the ED Location: Lumbar Spine, Paraspinous Muscles Timing/Duration: 4-6 Hours Severity: Severe Pain/Injury Location: Back (Lumbar spine and left paraspinal muscles going into the left lower extremity) Radiation: Buttocks (Left buttock and left lower extremity) Method of Injury: Unknown Modifying Factors: Worse With Movement Associated Symptoms: muscle spasms; No fever, No weakness, No numbness in legs/feet, No tingling in legs/feet, No sensory/motor loss; lower back pain (Lower lumbar back pain and left paraspinal muscle spasms); No loss of bladder control, No loss of bowel control Allergies and Home Medications Allergies Coded Allergies: No Known Drug Allergies (Unverified , 01/12/21) Patient Home Medication List Home Medication List Reviewed: Yes Hydrocodone/Acetaminophen (Hydrocodone-Acetamin 5-325 mg) 1 Each Tablet, 1 TAB PO Q6H PRN for PAIN-SEVERE (8-10) Prescribed by: JESUS CLARK on 01/26/21 1232 Ibuprofen (Ibuprofen) 800 Mg Tablet, 800 MG PO Q8H PRN for PAIN Prescribed by: JESUS CLARK on 12/13/21 1525 Methocarbamol (Methocarbamol) 750 Mg Tablet, 1,500 MG PO Q8H PRN for MUSCLE SPASMS Prescribed by: JESUS Webster ENYART on 12/13/21 1525 Oxycodone HCl (Oxycodone HCl) 5 Mg Tablet, 5 MG PO Q6H PRN for PAIN-SEVERE (8- 10) Prescribed by: JESUS Webster ENYART on 12/13/21 1526 Review of Systems Constitutional: No chills, No fever EENTM: no symptoms reported Respiratory: no symptoms reported Cardiovascular: no symptoms reported Gastrointestinal: no symptoms reported Genitourinary: see HPI Musculoskeletal: see HPI Skin: No change in color, No rash Psychiatric/Neurological: See HPI; Denies Numbness, Denies Paresthesia Past Masroxs-Ewnlat-Fjagrf Hx Patient Social History Tobacco Use?: No Use of E-Cig and/or Vaping dev: No Substance use?: No Alcohol Use?: No Pt feels they are or have been: No Past Medical History Surgery/Hospitalization HX: Left forearm laceration Physical Exam Vital Signs Vital Signs - First Documented 12/13/21 14:05 Temp 36.8 Pulse 72 Resp 18 B/P (MAP) 111/74 (86) Pulse Ox 97 O2 Delivery Room Air Capillary Refill : Less Than 3 Seconds Height, Weight, BMI Height: '" Weight: lbs. oz. kg; 26.00 BMI Method:Actual General Appearance: WD/WN, Mild Distress HEENT: PERRL/EOMI, Pharynx Normal Neck: Full Range of Motion, Normal Inspection, Non Tender, Supple Cardiovascular: Regular Rate, Rhythm, Normal Peripheral Pulses Respiratory: Chest Non Tender, Lungs Clear, Normal Breath Sounds Peripheral Pulses: 2+ Carotid (R), 2+ Carotid (L), 2+ Dorsalis Pedis (R), 2+ Left Dors-Pedis (L), 2+ Radial Pulses (R), 2+ Radial Pulses (L) Back: No CVA Tenderness, Muscle Spasm (Left paraspinal muscle spasms), Vertebral Tenderness (Lumbar spine tenderness and left paraspinal muscle spasm and tenderness) Extremity: Normal Capillary Refill, Normal Range of Motion, No Calf Tenderness, No Pedal Edema, Other (Pain with straight leg raise at 30 degrees with both the right and left leg. 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, Other (Symmetrical and equal reflexes for patellar and Achilles tendon bilaterally) Skin: Normal Color, Warm/Dry; No Ecchymosis, No Erythema Procedures/Interventions Suture Size: 4-0 Progress/Results/Core Measures Results/Orders My Orders Orders - JESUS CLARK MD Dexamethasone Injection (Decadron Inje (12/13/21 14:25) Methylprednisolone Acetate Inj (Depo-Med (12/13/21 14:25) Orphenadrine Inj (Ed Only) (Norflex Inje (12/13/21 14:25) Ct Lumbar Spine Wo (12/13/21 14:26) Vital Signs/I&O 12/13/21 12/13/21 14:05 15:29 Temp 36.8 36.8 Pulse 72 72 Resp 18 18 B/P (MAP) 111/74 (86) 111/74 Pulse Ox 97 97 O2 Delivery Room Air Room Air Blood Pressure Mean: 86 Progress Progress Note #1: Progress Note Order steroid Decadron for faster acting anti-inflammatory effect, Depo-Medrol for long-acting anti-inflammatory effect, Norflex for muscle spasms. Obtain CT scan of the lumbar spine since he has lumbar spine back pain and radiculopathy down the left leg. Progress Note #2: Progress Note CT scan shows bulging disc at L3-4 and L4-5. There is no significant spinal canal stenosis. We will continue with steroid and anti-inflammatories. Muscle spasm medication. Encouraged to follow-up through clinic and he may benefit from physical therapy and strength training Diagnostic Imaging Diagonstic Imaging: CT Plain Films/CT/US/NM/MRI: other (Lumbar spine) Comments [facility]. [place], [place] NAME: ANDREW ARNETT [facility] REC#: [id number] PT STATUS: REG ER : 1990 PHYSICIAN: JESUS CLARK MD ADMIT DATE: 12/13/21/ER FS Signed Date of Exam:12/13/21 CT LUMBAR SPINE WO EXAMINATION: CT lumbar spine from 12/13/2021. TECHNIQUE: Multiple contiguous axial images were obtained through the lumbar spine without the use of intravenous contrast. Sagittal and coronal reformations were then performed. Auto Exposure Controls were utilized during the CT exam to meet ALARA standards for radiation dose reduction. INDICATION: Low back pain radiating down the left leg after stretching earlier today. FINDINGS: At T11, minimal loss of height is seen along the superior endplate which could be within normal limits for patient. If there is point tenderness, MRI recommended to evaluate for a mild compression deformity. Remaining vertebral body heights appear maintained. No subluxations appreciated. There is a well-corticated osseous fragment along the anterosuperior endplate at L3, chronic in appearance. The remaining osseous structures demonstrate no evidence for possible fracture. There is focal irregularity along the right aspect of the S1 level and adjacent L5 transverse process which has the appearance of partial sacralization of the right L5 transverse process. There is a suggestion of mild bulging disc material at L3-L4 and L4-L5. No significant central stenosis appreciated but the central canal and nerve roots could be better characterized with MRI, if clinically indicated. Within the visualized intra-abdominal structures, there are nonobstructive punctate stones in the left kidney. There is no acute soft tissue abnormality. IMPRESSION: 1. Minimal loss of height at T11 which may be within normal limits for patient but if there is point tenderness, MRI could evaluate for edema. Otherwise, no fractures identified. 2. Suspected bulging disc material at L3-L4 and L4-L5 without significant central stenosis. See above discussion. 3. Incidentally noted punctate nonobstructive stones in the left kidney. Dictated by: Dictated on workstation # [id number] Dict: 12/13/21 1445 Trans: 12/13/21 1643 [id number] Interpreted by: CAYETANO LUDWIG MD Electronically signed by: CAYETANO LUDWIG MD 12/13/21 2002 Reviewed: Reviewed by Me Departure Impression Primary Impression: Bulging of lumbar intervertebral disc Additional Impressions: Lumbar paraspinal muscle spasm Lumbar pain with radiation down left leg Disposition: 01 HOME, SELF-CARE Condition: Stable Departure-Patient Inst. Decision time for Depature: 15:26 Referrals: STACEY CORNEJO APRN (PCP) Primary Care Physician [facility] (Family) Primary Care Physician Patient Instructions: Opioids for Short-Term Treatment of Pain ED, Muscle Spasm ED, Low Back Pain ED, Using Heat for Pain, Using Cold for Pain, Degenerative Disc Disease ED Add. Discharge Instructions: Try alternating ice and heat to your back to help with muscle spasm and pain with inflammation. The steroid shots from today will help with inflammation and pain over the next 7 to 10 days. You could still take Ibuprofen to help with pain and inflammation. The muscle relaxer will help with spasms of the muscles in your back and down the left leg. For severe pain you could take the Oxycodone to help you rest if needed. Check with clinic as you may need physical therapy to help with your back pain and strengthen your back. All discharge instructions reviewed with patient and/or family. Voiced understanding. Scripts Methocarbamol (Methocarbamol) 750 Mg Tablet 1500 MG PO Q8H PRN for MUSCLE SPASMS for 10 Days, #60 TAB 0 Refills Prov: JESUS CLARK MD 12/13/21 Ibuprofen (Ibuprofen) 800 Mg Tablet 800 MG PO Q8H PRN for PAIN for 10 Days, #30 TAB 0 Refills Prov: JESUS CLARK MD 12/13/21 Oxycodone HCl (Oxycodone HCl) 5 Mg Tablet 5 MG PO Q6H PRN for PAIN-SEVERE (8-10) for 5 Days, #20 TAB 0 Refills Prov: JESUS CALRK MD 12/13/21 Work/School Note: Work Release Form Date Seen in the Emergency Department: Dec 13, 2021 Return to Work: Dec 17, 2021 Restrictions: No Restrictions JESUS CLARK MD Dec 13, 2021 14:47
--- NOTE | 2021-12-13 15:00 | Diagnostic Imaging Report ---
EXAMINATION: CT lumbar spine from 12/13/2021. TECHNIQUE: Multiple contiguous axial images were obtained through the lumbar spine without the use of intravenous contrast. Sagittal and coronal reformations were then performed. Auto Exposure Controls were utilized during the CT exam to meet ALARA standards for radiation dose reduction. INDICATION: Low back pain radiating down the left leg after stretching earlier today. FINDINGS: At T11, minimal loss of height is seen along the superior endplate which could be within normal limits for patient. If there is point tenderness, MRI recommended to evaluate for a mild compression deformity. Remaining vertebral body heights appear maintained. No subluxations appreciated. There is a well-corticated osseous fragment along the anterosuperior endplate at L3, chronic in appearance. The remaining osseous structures demonstrate no evidence for possible fracture. There is focal irregularity along the right aspect of the S1 level and adjacent L5 transverse process which has the appearance of partial sacralization of the right L5 transverse process. There is a suggestion of mild bulging disc material at L3-L4 and L4-L5. No significant central stenosis appreciated but the central canal and nerve roots could be better characterized with MRI, if clinically indicated. Within the visualized intra-abdominal structures, there are nonobstructive punctate stones in the left kidney. There is no acute soft tissue abnormality. IMPRESSION: 1. Minimal loss of height at T11 which may be within normal limits for patient but if there is point tenderness, MRI could evaluate for edema. Otherwise, no fractures identified. 2. Suspected bulging disc material at L3-L4 and L4-L5 without significant central stenosis. See above discussion. 3. Incidentally noted punctate nonobstructive stones in the left kidney. Dictated by: Dictated on workstation # [id number]
[2021-12-13] MEDS ORDERED: OXYC5TAB PO (15:25)
[2021-12-13] MEDS ORDERED: METH-732 PO (15:25)
[2021-12-13] MEDS ORDERED: IBUP-1780 PO (15:25)
[2021-12-13 15:29] VITALS: BP 111/74
== END 2021-12-13 15:29 | disposition home or self-care (01) ==
LOC: EDUNIT# 13:59 → ER FS 14:00
DX: M51.36 Other intervertebral disc degeneration, lumbar region (principal); M62.830 Muscle spasm of back; Z28.310 Unvaccinated for COVID-19
CPT/HCPCS: 72131

== ENCOUNTER 2022-03-18 13:46 | Emergency (ER) | payer MEDICAID ==
[~2022-03-18] VITALS: Ht 185.5 cm; Wt 89.5 kg
[~2022-03-18 13:46] MED LIST changes: +IBUP-1780 PO; +METH-732 PO; +OXYC5TAB PO
[2022-03-18 14:00] VITALS: BP 112/66
[2022-03-18] MEDS ORDERED: morphine INJ 10 MG/ML 1ML (SYR OR VIAL) IM STA (14:17)
[2022-03-18] MEDS ORDERED: ONDANSETRON 4 MG (ZOFRAN) ORAL DISSOLVE TAB PO STA (14:17)
[2022-03-18] MEDS ORDERED: CYCL10TA25 PO (14:23)
[2022-03-18] MEDS ORDERED: TRM50T PO (14:23)
--- NOTE | 2022-03-18 14:24 | ED Back Pain ---
General Chief Complaint: Back Problems Stated Complaint: BACK PAIN Source of Information: Patient Exam Limitations: No Limitations History of Present Illness Date Seen by Provider: Mar 18, 2022 Time Seen by Provider: 13:45 Initial Comments Patient with history of chronic back pain who presents with acute exacerbation of low back pain. Patient was stretching this morning when he felt a pulling in his lower lumbar paravertebral region and nonradicular. Pain is moderate to severe. Patient reports stiffness with pain on range of motion. No motor weakness or loss of sensation. No other acute symptoms or complaints. No medications or therapies taken prior to to arrival. He was able to complete work this morning prior to coming to the emergency department. Timing/Duration: 4-6 Hours Severity: Moderate Pain/Injury Location: Other Radiation: Other Method of Injury: Other Modifying Factors: Improves With Other Associated Symptoms: other Allergies and Home Medications Allergies Coded Allergies: No Known Drug Allergies (Unverified , 01/12/21) Patient Home Medication List Home Medication List Reviewed: Yes Hydrocodone/Acetaminophen (Hydrocodone-Acetamin 5-325 mg) 1 Each Tablet, 1 TAB PO Q6H PRN for PAIN-SEVERE (8-10) Prescribed by: JESUS CLARK on 01/26/21 1232 Ibuprofen (Ibuprofen) 800 Mg Tablet, 800 MG PO Q8H PRN for PAIN Prescribed by: JESUS CLARK on 12/13/21 1525 Methocarbamol (Methocarbamol) 750 Mg Tablet, 1,500 MG PO Q8H PRN for MUSCLE SPASMS Prescribed by: JESUS CLARK on 12/13/21 1525 Oxycodone HCl (Oxycodone HCl) 5 Mg Tablet, 5 MG PO Q6H PRN for PAIN-SEVERE (8- 10) Prescribed by: JESUS CLARK on 12/13/21 1526 Review of Systems Constitutional: see HPI Musculoskeletal: back pain Past Fvbbimi-Ptmmjn-Qitgoe Hx Patient Social History Tobacco Use?: No Past Medical History Surgery/Hospitalization HX: Left forearm laceration Physical Exam Vital Signs Capillary Refill : Height, Weight, BMI Height: '" Weight: lbs. oz. kg; 26.00 BMI Method:Actual General Appearance: No Apparent Distress, WD/WN Back: No CVA Tenderness, Decreased Range of Motion, Muscle Spasm (Lower lumbar paravertebral pain/spasm) Neurologic/Psychiatric: No Motor/Sensory Deficits Procedures/Interventions Suture Size: 4-0 Progress/Results/Core Measures Results/Orders My Orders Orders - MAISHA HAQ DO Morphine Injection (Morphine Injection (03/18/22 14:17) Ondansetron Oral Dissolve Tab (Zofran (03/18/22 14:17) Ketorolac Injection (Toradol Injection) (03/18/22 14:30) Departure Impression Primary Impression: Lumbar sprain Disposition: 01 HOME, SELF-CARE Condition: Stable Departure-Patient Inst. Decision time for Depature: 14:22 Referrals: STACEY CORNEJO APRN (PCP) Primary Care Physician [facility] (Family) Primary Care Physician Patient Instructions: Low Back Pain (DC) Add. Discharge Instructions: You were evaluated in the emergency department for low back sprain. Please take newly prescribed medications as directed, avoid strenuous physical activity heavy lifting and follow-up with your PCP and physical therapist. All discharge instructions reviewed with patient and/or family. Voiced understanding. Scripts Cyclobenzaprine HCl (Cyclobenzaprine HCl) 10 Mg Tablet 10 MG PO Q8H PRN for SPASMS, #15 TAB 0 Refills Prov: MAISHA HAQ DO 03/18/22 Tramadol HCl (Tramadol HCl) 50 Mg Tablet 50 MG PO Q6H PRN for PAIN for 3 Days, #12 TAB 0 Refills Prov: MAISHA HAQ DO 03/18/22 MAISHA HAQ DO Mar 18, 2022 14:24
[2022-03-18] MEDS ORDERED: KETOROLAC 60 MG/2 ML VIAL IM ONE (14:30)
== END 2022-03-18 14:41 | disposition home or self-care (01) ==
LOC: EDUNIT# 13:46 → ER FS 13:47
DX: S33.5XXA Sprain of ligaments of lumbar spine, initial encounter (principal); Z28.310 Unvaccinated for COVID-19; X50.1XXA Overexertion from prolonged static or awkward postures, initial encounter
CPT/HCPCS: 99281